=== PATIENT | female | born 1960 | race Caucasian/White ===

== ENCOUNTER 2022-11-04 14:15 | Outpatient (CLI) | payer BC, SELFPAY ==
--- NOTE | 2022-11-04 14:00 | DI.RAD_ITS ---
Exam(s) XR HIP RT COMPLETE AP PELVIS EXAM: XR HIP RT COMPLETE AP PELVIS CLINICAL HISTORY: right hip pain. TECHNIQUE: 2D digital imaging was performed of the right hip. Three images were obtained. AP pelvis and lateral right hip views were obtained. COMPARISON: CR Sacrum and Coccyx 2 Views from 07/22/2022 MR MRI Lower Ext Joint RT w/Cont from 09/23/2022 MR MRI Lower Ext Joint RT w/Cont from 09/23/2022 FINDINGS: BONES: No acute fracture is present. No bony destructive lesion is seen. The sclerotic focus in the l eft ileum is unchanged. This may represent a bone island. Please correlate clinically. If there is clinical concern, a nuclear medicine bone scan may be obtained for further evaluation. JOINTS: No dislocation present. SOFT TISSUE: Normal. IMPRESSION: No acute abnormality. DATA REPOSITORY: RADIATION DOSE DELIVERED:
== END 2022-11-04 14:16 | disposition home or self-care (01) ==
LOC: DIORS 14:16
PROVIDERS: Visit Provider Physician Assistant
DX: M25.551 Pain in right hip (principal)
CPT/HCPCS: 73502